=== PATIENT | male | born 2000 | race African-American/Black ===

== ENCOUNTER 2020-03-04 22:54 | Emergency (ER) | payer OTHER ==
[~2020-03-04] VITALS: Ht 165.1 cm; Wt 56.7 kg
[2020-03-04 23:15] VITALS: TEMP 98.5
[2020-03-05 00:24] LABS: PLATELET COUNT 181 K/uL (142-355)
[2020-03-05 00:40] LABS: POTASSIUM 3.5 mmol/L (3.6-5.2)
[2020-03-05 01:50] VITALS: BP 114/76
== END 2020-03-05 01:50 | disposition home or self-care (01) ==
LOC: ED 22:54
PROVIDERS: Family Medicine
DX: J06.9 Acute upper respiratory infection, unspecified (principal); Z03.818 Encounter for observation for suspected exposure to other biological agents ruled out
CPT/HCPCS: 36415; 80053; 81000; 85027; 85379; 87502; 87635; 87651; 99283; U0002